=== PATIENT | female | born 1960 | race Caucasian/White ===

== ENCOUNTER 2024-08-15 21:07 | Emergency (ER) | payer BC, SELFPAY ==
[2024-08-15 21:10] VITALS: BP 194/94
[2024-08-15 21:36] LABS: % Basophils 0.4 % (0-2); % Eosinophils 2.4 % (0-6); % Immature Granulocytes 0.5 % (0-0.5); % Lymphocytes 30.9 % (20.5-51.1); % Monocytes 4.9 % (1.7-9.3); % Neutrophils 60.9 % (42.2-75.2); Absolute Eosinophils 0.2 10^3/uL (0-0.7); Absolute Immature Granulocytes 0.1 10^3/uL (0-0.05); Absolute Lymphocytes 2.9 10^3/uL (1.2-3.4); Absolute Monocytes 0.5 10^3/uL (0.1-0.6); Absolute Neutrophils 5.7 10^3/uL (1.4-6.5); Hematocrit 36.2 % (37.0-47.0); Mean Corp Hgb Conc. 33.1 g/dL (33.0-37.0); Mean Corpuscular Hgb 29.9 pg (27.0-31.0); Mean Platelet Volume 9.5 fL (7.4-10.4); Nucleated Red Blood Cells % 0 %; Platelet Count 335 10^3/uL (130-400); Red Blood Cell Count 4.02 10^6/uL (4.20-5.40); White Blood Cell Count 9.3 10^3/uL (4.8-10.8)
[2024-08-15 21:47] LABS: COVID-19 Antigen Negative (Negative)
[2024-08-15 21:48] LABS: ALT (SGPT) 29 U/L (0-35); AST (SGOT) 26 U/L (14-36); Albumin 4.9 g/dl (3.5-5.0); Alkaline Phosphatase 107 U/L (38-126); Blood Urea Nitrogen 19 mg/dl (7-17); Calcium 10.4 mg/dl (8.4-10.2); Carbon Dioxide 27 mmol/L (22-30); Chloride 102 mmol/L (98-107); Glucose 101 mg/dl (70-99); Potassium 4.1 mmol/L (3.5-5.1); Sodium 139 mmol/L (135-145); Total Bilirubin 0.2 mg/dl (0.2-1.3); Total Protein 7.7 g/dl (6.3-8.2); eGFR > 60.00
[2024-08-15 21:53] VITALS: BMI 32.7
[2024-08-15 22:00] VITALS: BP 127/69
[2024-08-15 22:00] LABS: Troponin I < 0.012 ng/ml
--- NOTE | 2024-08-15 22:37 | ED.GENMED ---
History of Present Illness
General
Chief Complaint: Blood Pressure Problem
Source: patient
Exam Limitations: none
Time Seen by Provider: 08/15/24 22:28
Nursing documentation reviewed up to this point in time: agreed with
History of Present Illness
History of Present Illness:
This is a 64-year-old woman who complains of several day history of dry hacking cough accompanied with some chest pressure, intermittent shortness of breath. She admits that she overall has not been feeling well the past several days. She denies
fever nor chills, no nasal congestion nor sinus congestion, no headache. She was concerned when her blood pressure has been intermittently elevated over the past few days. She does not have history of hypertension.
She denies leg pain or swelling. Chest pain is worse with cough. She denies chest pain with deep breath. Cough has been persistent throughout the day, worse when she is talking and laughing. Symptoms are not worsened at nighttime. No recent
travel.
No close contacts with similar symptoms.
She has not been taking anything for her symptoms.
Her only past medical history is hypothyroidism, maintained on levothyroxine.
She does smoke cigarettes. Admits that she has cut down a bit on smoking with recent URI symptoms.
Past History
Past History
ED Past Medical History: Hypothyroidism
ED Past Surgical History: Appendectomy, (X 6) and Orthopedic (Bilateral hip replacements, left wrist)
Social History
Tobacco: Smoker
Drug: Other (Remote history of opiate abuse-prolonged remission)
Personal:
Living: with family
Family History
Family History: Other (Noncontributory)
Phy Exam
Physical Exam
Physical Exam:
GENERAL: 64-year-old woman appears her stated age, awake and alert, pleasant, appears in no acute distress. Frequent dry hacking cough is noted. No respiratory distress, able to speak in full sentences. Daughter at bedside
EYE: pupils equal and reactive. anicteric
NECK: Supple, nontender, no meningismus, no significant adenopathy.
ENT: posterior pharynx is clear, oral mucosa is moist. TM clear b/l, nares patent.
CARDIAC: Regular rate and rhythm. no murmur.
LUNGS: no acute respiratory distress, scattered expiratory wheezing bilaterally.
ABDOMEN: Soft, nondistended, without focal tenderness, normoactive BS.
NEUROLOGICAL: Alert and oriented x3, no focal neuro deficits. Gait is morelos and steady.
SKIN: Warm and dry, normal color, skin intact. No rash.
MUSCULOSKELETAL: No C/C/E. peripheral pulses are full and equal b/l. No palpable tenderness.
PSYCH: Normal and appropriate interaction.
Course
Orders/Labs/Results
Orders:
Orders
08/15/24 21:14
Electrocardiogram (*1) Urgent
Reason for Study: Chest Pain
08/15/24 21:15
EKG- Treatment ONCE
08/15/24 21:24
COVID-19 Antigen Urgent
Source: Nasal Swab
Complete Blood Count/With Diff Urgent
Comprehensive Metabolic Panel Urgent
NT-proBNP Urgent
Troponin I Urgent
08/15/24 21:49
Influenza A+B Rapid Molecular Urgent
VALDEMAR Source: Nasal Swab
Specimen Description:
08/15/24 22:36
Ipratropium/Albuterol Sulfate [Duoneb] 3 ml INH R NOW STA
CR Chest - 2 Views Urgent
Comment:
Reason For Exam: cough, SOB x few days
Abnormal Lab Results
08/15/24
21:24
RBC 4.02 L 10^6/uL
(4.20-5.40)
Hct 36.2 L %
(37.0-47.0)
Abs Immat Gran (auto) 0.1 H 10^3/uL
(0-0.05)
BUN 19 H mg/dl
(7-17)
Glucose 101 H mg/dl
(70-99)
Calcium 10.4 H mg/dl
(8.4-10.2)
08/15/24 21:24
08/15/24 21:24
Vital Signs
Initial and Last Documented VS:
Initial Vital Signs
Temp Pulse Resp BP Pulse Ox
98.6 F 94 18 194/94 96
08/15/24 21:10 08/15/24 21:10 08/15/24 21:10 08/15/24 21:10 08/15/24 21:10
Last Documented Vital Signs
Temp Pulse Resp BP Pulse Ox
98.6 F 69 22 114/64 98
08/15/24 21:10 08/15/24 22:30 08/15/24 23:00 08/15/24 23:00 08/15/24 22:30
MDM/Problems Addressed
Differential Diagnosis Includes:
History concerning for URI such as a bronchitis, other consideration is pneumonia. Less likely CHF. Less likely ACS, thromboembolism.
Moderate hypertension noted initially, has normalized without intervention.
EKG is unremarkable.
Labs are unremarkable with normal white blood cell count, normal H&H, unremarkable chemistries.
Troponin is negative. With ongoing chest discomfort for several days, unremarkable EKG, normal troponin, no evidence of ACS.
BNP is normal at 37.
COVID and influenza testing are negative�as expected as patient reports no fever and has been afebrile since arrival to the ED.
She is noted to be wheezing. No history of asthma nor COPD but is a smoker. Will trial a DuoNeb nebulizer and will check chest x-ray.
*Radiology
Radiology exam reviewed: preliminary read by ED provider (Chest x-ray is unremarkable. Clear lung dominguez. Normal heart size.)
*Pulse Oximetry
Patient hypoxic: no
*EKG
Interpreted by ED Provider?: Yes
Interpretation: normal
Comparison EKG: no comparison EKG present
Rate: normal
Rhythm: sinus
[place]: normal axis
Interval: normal interval
QRS Pattern: normal QRS
Ischemia: no ischemia
*Cartridge Belt Puncher Interpretation
Rate: normal
Interpretation: normal
Rhythm: sinus
*Critical Care Note
Total Time (30-74mins, 75-104mins- exclusive of procedures): Not Applicable
Update Note
Update Note:
23:50
Patient feeling markedly improved after DuoNeb nebulizer, marked improvement in cough.
Lungs are now clear to auscultation.
Chest x-ray is unremarkable.
BP 114/64.
Will discharge to home with albuterol inhaler for as needed cough, shortness of breath.
Recommend continuing supportive measures for URI symptoms, staying well-hydrated, rest, Tylenol versus ibuprofen as needed for discomfort.
Encouraged to discontinue cigarettes. Smoking cessation strategies discussed. 3 minutes tobacco cessation counseling provided.
Prompt follow-up with PCP for recheck.
ED Attending Note
-
Portions of this chart may have been created with voice recognition software.� Occasional wrong word or��sound alike� substitutions may have occurred due to the inherent limitations of voice recognition software.
Discharge Plan
Departure
Patient Disposition: Home (Routine Discharge)
Date of Disposition: 08/15/24
Time of Disposition: 23:50
Patient with high blood pressure during this ER visit?: No
Condition: Good
Discharge Problem:
Acute bronchitis
Instructions: Acute bronchitis in adults, Quitting smoking for adults
Prescriptions:
New
albuterol sulfate 90 mcg/actuation aerosol powdr breath activated
2 inh inhalation QIDPRN PRN (Reason: shortness of breath or wheezing) Qty: 1 0RF
Referrals:
NONE,* [Family Provider] - Call in 1-3 days for appt
Interventions
Interventions:
*Risk Screen - Suicide Last Done: 08/15/24 21:10
*General Assessment Last Done: 08/15/24 21:10
*Neglect/Abuse Screening Last Done: 08/15/24 21:55
*ED COVID-19 Vaccine History Last Done: 08/15/24 21:10
ED- Cardiac Assessment Last Done: 08/15/24 21:55
ED- Neurological Assessment Last Done: 08/15/24 21:55
ED- Pulmonary Assessment Last Done: 08/15/24 21:55
Discharge Date and Time
Print Language: [id number]
[2024-08-15] MEDS: DUONEB 3 ML INH (22:40)
[2024-08-15 23:00] VITALS: BP 114/64
== END 2024-08-16 00:06 | disposition home or self-care (01) ==
LOC: EMR 21:07
PROVIDERS: Emergency Medicine; EMERGENCY PHYSICIAN Emergency Medicine
DX: J20.9 Acute bronchitis, unspecified (principal); R06.02 Shortness of breath; F17.210 Nicotine dependence, cigarettes, uncomplicated; E03.9 Hypothyroidism, unspecified
CPT/HCPCS: 99285; 94640; 71046; 80053; 83880; 84484; 85025; 87502; 87811; 93005